=== PATIENT | female | born 1995 | race African-American/Black ===

== ENCOUNTER 2020-11-04 06:31 | Day surgery (SDC) | payer OTHER ==
[2020-11-03 16:33] VITALS: BMI 30.9
[2020-11-04 11:36] LABS: HEMATOCRIT 37.7 % (32.4-45.2); HEMOGLOBIN 12.2 GM/dL (10.7-15.3); MCHC 32.4 g/dl (32.0-36.0); MEAN PLT VOLUME 9.1 fl (7.5-11.1); PLATELET COUNT 232 K/MM3 (134-434); RBC 3.81 M/mm3 (3.60-5.2); RDW 13.1 % (11.6-15.6); WHITE BLOOD COUNT 6.6 K/mm3 (4.0-10.0)
[2020-11-04 11:57] LABS: POTASSIUM 4.3 mmol/L (3.5-5.1)
[2020-11-04 11:59] LABS: ALBUMIN 3.8 g/dl (3.4-5.0); BLOOD UREA NITROGEN 10.5 mg/dL (7-18)
[2020-11-04 12:02] LABS: CREATININE 0.9 mg/dL (0.55-1.3)
[2020-11-04 12:04] LABS: BILIRUBIN,TOTAL 0.3 mg/dL (0.2-1); TOT PROT 7.3 g/dl (6.4-8.2)
[2020-11-04] MEDS ORDERED: MIDAZOLAM HCL 2 MG/2 ML SINGLE DOSE VIAL ONE ×3 (12:35→14:18)
[2020-11-04] MEDS ORDERED: PROPOFOL 20 ML ONE (14:19)
[2020-11-04] MEDS ORDERED: ceFAZolin SODIUM 1 GM VIAL IVPB ONE (14:20)
[2020-11-04] MEDS ORDERED: KETOROLAC TROMETHAMINE 30 MG/1 ML VIAL ONE (14:36)
[2020-11-04] MEDS ORDERED: LIDOCAINE HCL/PF 2% SDV 5ML VIAL ONE (14:36)
[2020-11-04] MEDS ORDERED: ceFAZolin SODIUM 1 GM VIAL ONE (14:36)
[2020-11-04] MEDS ORDERED: DEXAMETHASONE SOD PHOSPHATE 4 MG/1 ML VIAL ONE (14:36)
[2020-11-04] MEDS ORDERED: ONDANSETRON 4 MG/2 ML VIAL IVPUSH PRN (17:35)
[2020-11-04] MEDS ORDERED: oxyCODONE HCL 5 MG TABLET PO PRN (17:35)
[2020-11-04 17:58] VITALS: TEMP 97.2
[2020-11-04 18:37] VITALS: BP 111/60; PULSE 82
== END 2020-11-04 18:25 | disposition home or self-care (01) ==
LOC: JASU-SURG 06:31
PROVIDERS: ATTEND Surgery Vascular Surgery
PROC: 0DBQ0ZZ Excision of Anus, Open Approach (ICD-10-PCS; principal; 2020-11-04 13:00)
DX: K60.3 Anal fistula (principal)
CPT/HCPCS: 36415; 80053; 84703; 85027; 94760